=== PATIENT | male | born 1985 | race Caucasian/White ===

== ENCOUNTER 2019-12-17 08:50 | Emergency (ER) | payer MEDICAID ==
[~2019-12-17] VITALS: Ht 170.2 cm; Wt 77.3 kg
[2019-12-17 08:52] VITALS: Ht 170.2 cm; Wt 77.3 kg
[2019-12-17] MEDS ORDERED: NAPROSYN500 MG PO (10:31)
[2019-12-17] MEDS ORDERED: BACLOFEN20 M1 PO (10:31)
[2019-12-17 10:55] VITALS: BP 106/71
== END 2019-12-17 11:00 | disposition home or self-care (01) ==
LOC: D.ER 08:50
DX: S86.912A Strain of unspecified muscle(s) and tendon(s) at lower leg level, left leg, initial encounter (principal); S89.92XA Unspecified injury of left lower leg, initial encounter; X58.XXXA Exposure to other specified factors, initial encounter; Y93.02 Activity, running; Y92.9 Unspecified place or not applicable